=== PATIENT | male | born 1970 | race Caucasian/White ===

== ENCOUNTER 2017-10-23 08:30 | Emergency (ER) | payer OTHER ==
[~2017-10-23] VITALS: Ht 177.8 cm; Wt 83.9 kg
--- NOTE | 2017-10-23 08:36 | NUR ---
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 TDAP UNKNOWN. NOTED WITH ACTIVE BLEEDING. LACERATION IS ABOUT 1 INCH. PATIENT;S VSS.
--- NOTE | 2017-10-23 08:42 | NUR ---
MD LUNA AT BEDSIDE
[2017-10-23] MEDS ORDERED: LIDOCAINE 1% INJ 50 ML MDV IJ ONE (08:46)
[2017-10-23] MEDS ORDERED: ACETAMINOPHEN ES 500 MG TABLET ONE (08:47)
[2017-10-23] MEDS ORDERED: LIDOCAINE HCL/PF 1% 30 ML SDV ONE (08:47)
[2017-10-23] MEDS ORDERED: TDAP [DIPH/PERTUSSIS/TET] 0.5 ML VIAL IM ONE ×2 (08:48→09:00)
[2017-10-23] MEDS ORDERED: LIDOCAINE HCL/PF 1% 30 ML VIAL TP ONE (09:00)
[2017-10-23] MEDS ORDERED: ACETAMINOPHEN ES 500 MG TABLET PO ONE (09:00)
[2017-10-23 09:55] VITALS: BP 138/80
--- NOTE | 2017-10-23 09:57 | NUR ---
PATIENT'S LAC WAS CLEANED, SUTURED AND WRAPPED BY PHYCISIAN'S COACH DRIVER. SPLINT PROVIDED. PATIENT AWARE OF DISCHARGE PLAN AND VERBALIZED UNDERSTANDING.
--- NOTE | 2017-10-23 09:58 | NUR ---
Lynsey munguia in [facility] - 10/23/17 at 1001 by YVETTE Patient discharged to home in stable condition. Written and verbal after care instructions given. Patient verbalizes understanding of instruction.
[2017-10-23] MEDS ORDERED: BACI/NEOM/POLY B OINT PKT 1 UDPKT PACKET TP ONE (10:00)
--- NOTE | 2017-10-23 10:47 | NUR ---
Patient discharged to home in stable condition. Written and verbal after care instructions given. Patient verbalizes understanding of instruction.
== END 2017-10-23 09:58 | disposition home or self-care (01) ==
LOC: ER 08:31
DX: S61.012A Laceration without foreign body of left thumb without damage to nail, initial encounter (principal); W26.0XXA Contact with knife, initial encounter; Y93.89 Activity, other specified; Y92.89 Other specified places as the place of occurrence of the external cause; Y99.8 Other external cause status; F17.200 Nicotine dependence, unspecified, uncomplicated
CPT/HCPCS: 12001; 73140; 90471; 90715; 99284; A4606; A6402; A6403; J3490 ×3; Z7610

== ENCOUNTER 2017-10-25 13:39 | Emergency (ER) | payer OTHER ==
[~2017-10-25] VITALS: Ht 188 cm; Wt 108.4 kg
[2017-10-25 13:46] VITALS: BP 155/79
== END 2017-10-25 14:48 | disposition home or self-care (01) ==
LOC: ER 13:40
DX: S61.012D Laceration without foreign body of left thumb without damage to nail, subsequent encounter (principal); F17.200 Nicotine dependence, unspecified, uncomplicated; W26.0XXD Contact with knife, subsequent encounter
CPT/HCPCS: 99281; A4606; Z7610; Z7502

== ENCOUNTER 2017-11-04 04:00 | Emergency (ER) | payer OTHER ==
[~2017-11-04] VITALS: Ht 188 cm; Wt 108.9 kg
--- NOTE | 2017-11-04 04:22 | NUR ---
BIBSELF, AMBULATORY TO ER BED 3 PT HERE FOR WOUND CHECK ON LEFT THUMB WITH STITCHES. PT AOX3 RR EVEN AND UNLABORED. NO SOB NOTED. NAD NOTED. NO NVD AT THIS TIME. Elvis YING AT BEDSIDE FOR EVAL.
--- NOTE | 2017-11-04 04:25 | NUR ---
AT BEDSIDE FOR REMOVAL OF STITCHES.
[2017-11-04] MEDS ORDERED: CLINDAMYCIN 900 MG/6 ML VIAL ONE (04:45)
[2017-11-04] MEDS ORDERED: CLINDAMYCIN 900 MG in IV D5W 100 ML IV ONE (05:00)
--- NOTE | 2017-11-04 05:26 | NUR ---
IV removed. Catheter intact and site benign. Pressure and 4x4 applied to site. No bleeding noted. DPatient discharged to home in stable condition. Written and verbal after care instructions given. Patient verbalizes understanding of instruction. ambulatory with a steady gait. instructed pt not to drive. pt verbal;ize understanding.
[2017-11-04 05:29] VITALS: BP 138/68
== END 2017-11-04 05:30 | disposition home or self-care (01) ==
LOC: ER 04:02
DX: S61.012D Laceration without foreign body of left thumb without damage to nail, subsequent encounter (principal); L08.9 Local infection of the skin and subcutaneous tissue, unspecified; F17.200 Nicotine dependence, unspecified, uncomplicated; Z60.2 Problems related to living alone; X58.XXXD Exposure to other specified factors, subsequent encounter
CPT/HCPCS: A4606; J3490; J7060; Z7610

== ENCOUNTER 2017-11-05 05:19 | Emergency (ER) | payer OTHER ==
[~2017-11-05] VITALS: Ht 177.8 cm; Wt 104.3 kg
[2017-11-05 05:38] VITALS: BP 135/79
--- NOTE | 2017-11-05 06:10 | NUR ---
DR. LUNA AT BEDSIDE FOR EVAL.
[2017-11-05] MEDS ORDERED: BACI/NEOM/POLY B OINT PKT 1 UDPKT PACKET ONE (06:28)
[2017-11-05] MEDS ORDERED: BACI/NEOM/POLY B OINT PKT 1 UDPKT PACKET TP ONE (06:30)
== END 2017-11-05 06:42 | disposition home or self-care (01) ==
LOC: ER 05:23
DX: S61.012A Laceration without foreign body of left thumb without damage to nail, initial encounter (principal); F17.200 Nicotine dependence, unspecified, uncomplicated; X58.XXXA Exposure to other specified factors, initial encounter; Y93.89 Activity, other specified; Y92.89 Other specified places as the place of occurrence of the external cause; Y99.8 Other external cause status
CPT/HCPCS: 29125; 99283; A4606; Z7610